=== PATIENT | female | born 1985 | race Caucasian/White ===

== ENCOUNTER 2016-09-30 19:44 | Outpatient (CLI) | payer MEDICAID ==
[~2016-09-30] VITALS: Ht 162.6 cm; Wt 111.8 kg
[~2016-09-30 19:44] MED LIST: PRENATAL PO
[2016-09-30 19:51] VITALS: BP 119/68
[2016-09-30 20:34] LABS: AMNI LOT 554010215
[2016-09-30 20:45] LABS: AMNI OBC PASS; AMNISURE NEGATIVE (NEGATIVE)
== END 2016-09-30 21:05 | disposition home or self-care (01) ==
LOC: LDOP 19:44
PROVIDERS: ATTEND Student in an Organized Health Care Education/Training Program
DX: O26.892 Other specified pregnancy related conditions, second trimester (principal); R10.9 Unspecified abdominal pain; R10.2 Pelvic and perineal pain; O42.912 Preterm premature rupture of membranes, unspecified as to length of time between rupture and onset of labor, second trimester; O99.332 Smoking (tobacco) complicating pregnancy, second trimester; F17.200 Nicotine dependence, unspecified, uncomplicated; Z3A.27 27 weeks gestation of pregnancy
CPT/HCPCS: 59025; 84112; 99211; G0463

== ENCOUNTER 2016-10-15 12:42 | Outpatient (CLI) | payer MEDICAID | END 2016-10-15 15:20 | disposition home or self-care (01) | LOC: LDOP 12:42 | PROVIDERS: ATTEND Student in an Organized Health Care Education/Training Program | DX: O26.893 Other specified pregnancy related conditions, third trimester (principal); O99.333 Smoking (tobacco) complicating pregnancy, third trimester; F17.200 Nicotine dependence, unspecified, uncomplicated; M54.2 Cervicalgia; V43.52XA Car driver injured in collision with other type car in traffic accident, initial encounter; Z3A.29 29 weeks gestation of pregnancy | CPT/HCPCS: 59025; 99211; G0463 ==

== ENCOUNTER 2016-11-21 20:15 | Outpatient (CLI) | payer MEDICAID | END 2016-11-21 21:20 | disposition home or self-care (01) | LOC: LDOP 20:15 | PROVIDERS: ATTEND Student in an Organized Health Care Education/Training Program | DX: O36.8130 Decreased fetal movements, third trimester, not applicable or unspecified (principal); O24.419 Gestational diabetes mellitus in pregnancy, unspecified control; O99.333 Smoking (tobacco) complicating pregnancy, third trimester; F17.200 Nicotine dependence, unspecified, uncomplicated; Z3A.34 34 weeks gestation of pregnancy | CPT/HCPCS: 59025; 99211; G0463 ==

== ENCOUNTER 2016-12-07 18:44 | Outpatient (CLI) | payer MEDICAID ==
[~2016-12-07] VITALS: Ht 167.6 cm; Wt 118.2 kg
[2016-12-07 19:42] VITALS: BP 132/65
[2016-12-07] MEDS ORDERED: PLEASE ENTER HEIGHT AND WEIGHT MC SCH (20:00)
[2016-12-07] MEDS ORDERED: PROMETHAZINE 25 MG/ML, 1ML IM ONE (20:00)
[2016-12-07] MEDS ORDERED: MEPERIDINE/PF 50 MG/ML IM PRN (20:00)
[2016-12-07] MEDS ORDERED: MEPERIDINE/PF 100 MG/ML ONE (20:01)
[2016-12-07] MEDS ORDERED: PROMETHAZINE 25 MG/ML, 1ML ONE (20:01)
[2016-12-07 20:05] LABS: ASPARTATE AMINO TRANSFERASE 19 U/L (15-37); BLOOD UREA NITROGEN 11 mg/dL (7-18)
== END 2016-12-07 22:50 | disposition home or self-care (01) ==
LOC: LDOP 18:44
PROVIDERS: ATTEND Student in an Organized Health Care Education/Training Program
DX: O26.893 Other specified pregnancy related conditions, third trimester (principal); O24.419 Gestational diabetes mellitus in pregnancy, unspecified control; O12.03 Gestational edema, third trimester; R10.9 Unspecified abdominal pain; R51 Headache; Z3A.37 37 weeks gestation of pregnancy
CPT/HCPCS: 36415; 59025; 80053; 81003; 82248; 82570; 84156; 84550; 85025; 99211; J2175; J2550; G0463

== ENCOUNTER 2016-12-09 09:53 | Inpatient (IN) | payer MEDICAID ==
[~2016-12-09] VITALS: Ht 167.6 cm; Wt 119.1 kg
[2016-12-09] MEDS ORDERED: OXYTOCIN 30U/ 0.9% NaCL 500ML 500 ML IV SCH (10:02)
[2016-12-09] MEDS ORDERED: LACTATED RINGERS 1,000 ML IV SCH ×2 (10:02→10:30)
[2016-12-09] MEDS ORDERED: NEWBORN KIT ONE ×2 (10:03→11:44)
[2016-12-09] MEDS ORDERED: SODIUM CITRATE/CITRIC ACID 30 ML UDC PO ONE (10:30)
[2016-12-09] MEDS ORDERED: LACTATED RINGERS 1,000 ML IVBOLUS ONE (10:30)
[2016-12-09] MEDS ORDERED: METOCLOPRAMIDE 5 MG/ML, 2ML IV ONE (10:30)
[2016-12-09 10:41] VITALS: BP 144/79
[2016-12-09] MEDS ORDERED: EPHEDRINE 50 MG/ML, 1ML IVPush PRN (11:00)
[2016-12-09] MEDS ORDERED: ONDANSETRON 2MG/ML, 2ML IVPush PRN (11:00)
[2016-12-09] MEDS ORDERED: hydrALAzine 20 MG/ML, 1ML IV PRN (11:00)
[2016-12-09] MEDS ORDERED: FENTANYL PF 100 MCG/2ML IV PRN (11:00)
[2016-12-09] MEDS ORDERED: OXYcodone 5 MG/5 ML ORAL.SOL UDC PO PRN (11:00)
[2016-12-09] MEDS ORDERED: MEPERIDINE/PF 25MG/0.5ML IVPush PRN (11:00)
[2016-12-09] MEDS ORDERED: ALBUTEROL SULFATE 2.5 MG/3 ML NPPB PRN (11:00)
[2016-12-09] MEDS ORDERED: MIDAZOLAM 1 MG/ML, 2ML IV PRN (11:00)
[2016-12-09] MEDS ORDERED: HYDROcodone/APAP 7.5-325MG/15ML UDC PO PRN (11:00)
[2016-12-09] MEDS ORDERED: LABETALOL 5MG/ML, 20ML IV PRN (11:00)
[2016-12-09] MEDS ORDERED: PROMETHAZINE 25 MG/ML, 1ML IV PRN (11:00)
[2016-12-09 11:06] LABS: ASPARTATE AMINO TRANSFERASE 25 U/L (15-37); BLOOD UREA NITROGEN 9 mg/dL (7-18)
[2016-12-09] MEDS ORDERED: FENTANYL PF 100 MCG/2ML ONE ×2 (11:14→12:07)
[2016-12-09] MEDS ORDERED: OXYTOCIN 30U/ 0.9% NaCL 500ML 500 ML ONE (11:25)
[2016-12-09] MEDS ORDERED: METOCLOPRAMIDE 5 MG/ML, 2ML ONE ×2 (11:25→12:07)
[2016-12-09] MEDS ORDERED: SODIUM CITRATE/CITRIC ACID 30 ML UDC ONE ×2 (11:25→12:07)
[2016-12-09] MEDS ORDERED: OXYTOCIN 10 UNITS/ML, 1ML ONE (12:07)
[2016-12-09] MEDS ORDERED: ONDANSETRON 2MG/ML, 2ML ONE (12:07)
[2016-12-09] MEDS ORDERED: PROPOFOL 10 MG/ML, 20ML ONE (12:07)
[2016-12-09] MEDS ORDERED: DEXAMETHASONE 4 MG/ML, 1ML ONE (12:07)
[2016-12-09] MEDS ORDERED: EPHEDRINE 50 MG/ML, 1ML ONE (12:07)
[2016-12-09] MEDS ORDERED: CEFAZOLIN 1,000 MG ONE (12:07)
[2016-12-09] MEDS ORDERED: PHENYLEPHRINE 10 MG/ML ONE (12:07)
[2016-12-09] MEDS ORDERED: HYDROmorphone 1 MG/ML, 1ML ONE ×2 (14:10→15:51)
[2016-12-09] MEDS: HYDROmorphone 1 MG/ML, 1ML IV PRN ×3 (14:26→15:54)
[2016-12-09] MEDS: LACTATED RINGERS 1,000 ML IV SCH ×2 (17:25)
[2016-12-09] MEDS: OXYTOCIN 30U/ 0.9% NaCL 500ML 500 ML IV SCH (17:25)
[2016-12-09 17:30] VITALS: BP 128/97
[2016-12-09] MEDS ORDERED: ONDANSETRON 2MG/ML, 2ML IV PRN (17:30)
[2016-12-09] MEDS ORDERED: SIMETHICONE 80 MG CHEW TAB PO PRN (17:30)
[2016-12-09] MEDS ORDERED: METOCLOPRAMIDE 5 MG/ML, 2ML IV PRN (17:30)
[2016-12-09] MEDS ORDERED: MISOPROSTOL 200 MCG TABLET PR PRN (17:30)
[2016-12-09] MEDS ORDERED: ACETAMINOPHEN 325 MG TABLET PO PRN (17:30)
[2016-12-09] MEDS: OXYcodone/APAP 5/325MG TABLET PO PRN ×2 (17:58→22:01)
[2016-12-09] MEDS: morphine SULFATE 10 MG/ML, 1ML IVPush PRN ×2 (19:19→22:34)
[2016-12-09 19:40] VITALS: BP 104/64
[2016-12-10 01:20] VITALS: BP 112/55
[2016-12-10] MEDS: LACTATED RINGERS 1,000 ML IV SCH ×4 (01:25→13:25)
[2016-12-10] MEDS: morphine SULFATE 10 MG/ML, 1ML IVPush PRN ×2 (01:42→05:27)
[2016-12-10] MEDS: OXYcodone/APAP 5/325MG TABLET PO PRN ×4 (02:08→19:20)
[2016-12-10] MEDS: OXYTOCIN 30U/ 0.9% NaCL 500ML 500 ML IV SCH ×2 (03:25→13:25)
[2016-12-10 06:15] VITALS: BP 130/75
[2016-12-10] MEDS: DOCUSATE 100 MG CAPSULE PO PRN ×2 (07:55→19:20)
[2016-12-10] MEDS: PRENATAL VIT/IRON/FA 1 EACH TABLET PO SCH (07:55)
[2016-12-10 08:00] VITALS: BP 122/66
[2016-12-10] MEDS ORDERED: IBUPROFEN 200 MG TABLET PO PRN (08:00)
[2016-12-10] MEDS: SERTRALINE 50MG TABLET PO SCH (09:49)
[2016-12-10] MEDS: OXYcodone IR 5MG TABLET PO PRN ×2 (12:09→16:17)
[2016-12-10] MEDS: IBUPROFEN 600 MG TABLET PO PRN ×2 (16:17→23:07)
[2016-12-10 19:00] VITALS: BP 139/77
[2016-12-10] MEDS ORDERED: DIPH,PERTUSS(ACELL),TET VAC/PF NC IM-VACC ONE (21:00)
[2016-12-11 01:00] VITALS: BP 110/59
[2016-12-11] MEDS: OXYcodone IR 5MG TABLET PO PRN ×4 (01:26→14:52)
[2016-12-11 08:30] VITALS: BP 117/77
[2016-12-11] MEDS: SERTRALINE 50MG TABLET PO SCH (08:44)
[2016-12-11] MEDS: PRENATAL VIT/IRON/FA 1 EACH TABLET PO SCH (08:44)
[2016-12-11] MEDS: DOCUSATE 100 MG CAPSULE PO PRN (08:44)
[2016-12-11] MEDS: IBUPROFEN 600 MG TABLET PO PRN ×2 (08:44→14:52)
[2016-12-11] MEDS ORDERED: OXYC5CAP4 PO (11:06)
[2016-12-11] MEDS ORDERED: IBUP-1222 PO (11:06)
[2016-12-11] MEDS ORDERED: DOCU-30 PO (11:07)
== END 2016-12-11 17:34 | disposition home or self-care (01) | DRG 765 ==
LOC: LDIP 09:53 → 2NW 16:28
PROVIDERS: ADMIT Student in an Organized Health Care Education/Training Program; ATTEND Student in an Organized Health Care Education/Training Program
PROC: 10D00Z0 Extraction of Products of Conception, High, Open Approach (ICD-10-PCS; principal; 2016-12-09)
PROC: 0UT70ZZ Resection of Bilateral Fallopian Tubes, Open Approach (ICD-10-PCS; 2016-12-09)
DX: O99.214 Obesity complicating childbirth (principal); Z68.41 Body mass index [BMI] 40.0-44.9, adult; E66.01 Morbid (severe) obesity due to excess calories; O99.284 Endocrine, nutritional and metabolic diseases complicating childbirth; E78.5 Hyperlipidemia, unspecified; O99.52 Diseases of the respiratory system complicating childbirth; J45.909 Unspecified asthma, uncomplicated; O24.424 Gestational diabetes mellitus in childbirth, insulin controlled; O23.43 Unspecified infection of urinary tract in pregnancy, third trimester; O13.4 Gestational [pregnancy-induced] hypertension without significant proteinuria, complicating childbirth; O26.893 Other specified pregnancy related conditions, third trimester; O43.893 Other placental disorders, third trimester; O34.211 Maternal care for low transverse scar from previous cesarean delivery; Z87.59 Personal history of other complications of pregnancy, childbirth and the puerperium; Z3A.37 37 weeks gestation of pregnancy; Z67.41 Type O blood, Rh negative; Z90.89 Acquired absence of other organs; Z37.0 Single live birth; Z88.5 Allergy status to narcotic agent; Z23 Encounter for immunization
CPT/HCPCS: 36415; 80053; 82248; 82803; 82962; 84550; 85025; 86850; 86900; 86923; 88302; 90715; J0690; J1100; J1170; J2405; J2704; J3010; J2270; J2370; J2590; J2765; J7120

== ENCOUNTER 2016-12-16 20:19 | Emergency (ER) | payer MEDICAID ==
[~2016-12-16] VITALS: Ht 167.6 cm; Wt 118.2 kg
[~2016-12-16 20:19] MED LIST changes: +DOCU-30 PO; +IBUP-1222 PO; +OXYC5CAP4 PO
[2016-12-16] MEDS ORDERED: SODIUM CHLORIDE FLUSH 10ML SYR IVF ONE (21:00)
[2016-12-16 21:22] LABS: ASPARTATE AMINO TRANSFERASE 23 U/L (15-37); BLOOD UREA NITROGEN 7 mg/dL (7-18)
[2016-12-16 22:54] VITALS: BP 148/88
== END 2016-12-17 00:02 | disposition home or self-care (01) ==
LOC: ED 23:39
DX: O12.03 Gestational edema, third trimester (principal); O16.3 Unspecified maternal hypertension, third trimester; Z3A.37 37 weeks gestation of pregnancy
CPT/HCPCS: 36415; 80053; 81001; 85025; 93970; 99285

== ENCOUNTER 2017-09-05 14:08 | Inpatient (IN) | payer MEDICAID ==
[~2017-09-05] VITALS: Ht 167.6 cm; Wt 104.1 kg
[~2017-09-05 14:08] MED LIST changes: +DOCU-131 PO; -DOCU-30 PO; +OXYC5CAP2 PO; -OXYC5CAP4 PO
[2017-09-05] MEDS ORDERED: SODIUM CHLORIDE FLUSH 10ML SYR IVF ONE (15:00)
[2017-09-05] MEDS ORDERED: ONDANSETRON ODT 4 MG PO ONE (15:00)
[2017-09-05] MEDS ORDERED: naltrexone PO (15:11)
[2017-09-05 15:35] LABS: MICROSCOPIC NOT IND
[2017-09-05] MEDS ORDERED: ONDANSETRON ODT 4 MG ONE (15:36)
[2017-09-05] MEDS ORDERED: MORPHINE SULFATE 4 MG/ML, 1ML ONE ×2 (15:37→20:22)
[2017-09-05 15:39] LABS: CULTURE INDICATED? NO
[2017-09-05 15:47] LABS: BASOPHILS # (AUTO) 0.05 x10^3/uL (0-0.1); BASOPHILS % (AUTO) 0 % (0-1); EOSINOPHILS # (AUTO) 0.16 x10^3/uL (0-0.4); EOSINOPHILS % (AUTO) 1 % (1-7); LYMPHOCYTES % (AUTO) 17 % (22-44); MD NO; MEAN CORPUSCULAR HEMOGLOBIN 29.6 pg (27.0-34.8); MEAN CORPUSCULAR HGB CONC 33.5 g/dL (32.4-35.8); MEAN CORPUSCULAR VOLUME 88.3 fL (80-100); MEAN PLATELET VOLUME 9.7 fL (7.4-10.4); MONOCYTES # (AUTO) 1.05 x10^3/uL (0.2-0.8); MONOCYTES % (AUTO) 7 % (2-9); NEUTROPHILS # (AUTO) 11.57 x10^3/uL (1.8-6.8); NEUTROPHILS % (AUTO) 75 % (42-75); PLATELET COUNT 265 x10^3/uL (130-400); RED BLOOD COUNT 5.06 x10^6/uL (3.82-5.3); RED CELL DISTRIBUTION WIDTH 13.4 % (9.6-15.2)
[2017-09-05 15:53] LABS: ALANINE AMINOTRANSFERASE 34 U/L (12-78); ALBUMIN 4.1 g/dL (3.4-5.0); ANION GAP 8 mmol/L (5-15); CALCIUM 8.5 mg/dL (8.5-10.1); CHLORIDE 105 mmol/L (98-107)
[2017-09-05 15:58] LABS: ALKALINE PHOSPHATASE 90 U/L (45-117); BILIRUBIN,TOTAL 0.7 mg/dL (0.2-1.0); TOTAL PROTEIN 7.7 g/dL (6.4-8.2)
[2017-09-05] MEDS: MORPHINE SULFATE 4 MG/ML, 1ML IVPush PRN ×2 (16:03→20:23)
[2017-09-05] MEDS ORDERED: POTASSIUM CHLORIDE 20 MEQ in D5%-0.45% NACL 1,000 ML IV ONE (16:40)
[2017-09-05] MEDS ORDERED: CEFOTETAN PMX 1GM/50ML 50 ML ONE ×2 (16:50→16:51)
[2017-09-05] MEDS ORDERED: SODIUM CHLORIDE FLUSH 10ML SYR IVF PRN (17:00)
[2017-09-05] MEDS ORDERED: CEFOTETAN PMX 1GM/50ML 50 ML IV ONE (17:00)
[2017-09-05] MEDS ORDERED: MORPHINE SULFATE 4 MG/ML, 1ML IVPush PRN (17:00)
[2017-09-05] MEDS ORDERED: METOCLOPRAMIDE 5 MG/ML, 2ML IVPush PRN (17:00)
[2017-09-05] MEDS ORDERED: INSULIN PEN (17:36)
[2017-09-05] MEDS ORDERED: HUMULIN R (17:39)
[2017-09-05 18:01] VITALS: BP 118/74
[2017-09-05] MEDS ORDERED: BUPIVACAINE/PF 0.5% ONE (18:12)
[2017-09-05] MEDS ORDERED: EPINEPHRINE 1 MG/ML, 1ML ONE (18:12)
[2017-09-05] MEDS ORDERED: MIDAZOLAM 1 MG/ML, 2ML ONE (18:33)
[2017-09-05] MEDS ORDERED: FENTANYL PF 250 MCG/5ML ONE (18:33)
[2017-09-05] MEDS ORDERED: BUPIVACAINE/PF-EPI 0.5% 1:200K INFIL ONE (19:18)
[2017-09-05] MEDS ORDERED: OXYcodone 5 MG/5 ML ORAL.SOL UDC PO PRN (19:30)
[2017-09-05] MEDS ORDERED: PROMETHAZINE 25 MG/ML, 1ML IV PRN (19:30)
[2017-09-05] MEDS ORDERED: MEPERIDINE/PF 25MG/0.5ML IVPush PRN (19:30)
[2017-09-05] MEDS ORDERED: LABETALOL 5MG/ML, 20ML IV PRN (19:30)
[2017-09-05] MEDS ORDERED: LORazepam 2 MG/ML, 1ML IVPush PRN (19:30)
[2017-09-05] MEDS ORDERED: HYDROmorphone 1 MG/ML, 1ML IV PRN (19:30)
[2017-09-05] MEDS ORDERED: ACETAMINOPHEN 325 MG TABLET PO PRN (19:30)
[2017-09-05] MEDS ORDERED: PROMETHAZINE 12.5 MG SUPP PR PRN (19:30)
[2017-09-05] MEDS ORDERED: ALBUTEROL SULFATE 2.5 MG/3 ML NPPB PRN (19:30)
[2017-09-05] MEDS ORDERED: hydrALAzine 20 MG/ML, 1ML IV PRN (19:30)
[2017-09-05] MEDS ORDERED: MEPERIDINE/PF 25MG/0.5ML ONE (19:56)
[2017-09-05] MEDS ORDERED: OXYcodone 5 MG/5 ML ORAL.SOL UDC ONE (19:56)
[2017-09-05] MEDS: FENTANYL PF 100 MCG/2ML IV PRN ×2 (20:05→20:18)
[2017-09-05] MEDS ORDERED: FENTANYL PF 100 MCG/2ML ONE (20:12)
[2017-09-05 21:10] VITALS: BP 103/56
[2017-09-05] MEDS ORDERED: DIPHENHYDRAMINE 25 MG CAPSULE PO PRN (21:30)
[2017-09-05] MEDS ORDERED: ONDANSETRON 2MG/ML, 2ML IV PRN (21:30)
[2017-09-05] MEDS ORDERED: POTASSIUM CHLORIDE 20 MEQ in D5%-0.45% NACL 1,000 ML IV SCH (21:30)
[2017-09-05] MEDS ORDERED: morphine SULFATE 10 MG/ML, 1ML IV PRN (21:30)
[2017-09-05] MEDS ORDERED: DIPHENHYDRAMINE 50 MG/ML, 1ML IV PRN (21:30)
[2017-09-05] MEDS: HYDROcodone/APAP 5/325 TABLET PO PRN (21:36)
[2017-09-05] MEDS ORDERED: ENOXAPARIN 40 MG/0.4 ML SQ SCH (22:00)
[2017-09-05] MEDS ORDERED: MELATONIN 5 MG TABLET PO SCH (23:00)
[2017-09-05] MEDS ORDERED: KETOROLAC 30 MG/1 ML IV PRN (23:30)
[2017-09-05] MEDS: POTASSIUM CHLORIDE 20 MEQ in D5%-0.45% NACL 1,000 ML IV SCH (23:49)
[2017-09-06 01:54] VITALS: BP 112/67
[2017-09-06 03:33] VITALS: BP 101/56
[2017-09-06 06:43] VITALS: BP 109/71
[2017-09-06] MEDS: HYDROcodone/APAP 5/325 TABLET PO PRN ×2 (08:47→15:13)
[2017-09-06] MEDS ORDERED: SODIUM CHLORIDE FLUSH 10ML SYR IVF SCH (09:00)
[2017-09-06] MEDS: POTASSIUM CHLORIDE 20 MEQ in D5%-0.45% NACL 1,000 ML IV SCH ×2 (09:13→14:47)
[2017-09-06 12:48] VITALS: BP 109/70
== END 2017-09-06 16:23 | disposition home or self-care (01) | DRG 419 ==
LOC: ED 16:48 → 3NE 18:13
PROVIDERS: ADMIT Surgery; ATTEND Surgery
PROC: 0FT44ZZ Resection of Gallbladder, Percutaneous Endoscopic Approach (ICD-10-PCS; principal; 2017-09-05 19:00)
DX: K81.0 Acute cholecystitis (principal); J45.909 Unspecified asthma, uncomplicated; Z88.6 Allergy status to analgesic agent
CPT/HCPCS: 36415; 76700; 80053; 81003; 83690; 84703; 85025; 88304; 99285; J0171; J2175; J2250; J3010; J3480; J3490; Q0162; S0074

== ENCOUNTER 2018-01-12 17:57 | Emergency (ER) | payer MEDICAID ==
[~2018-01-12] VITALS: Ht 167.6 cm; Wt 94.7 kg
[~2018-01-12 17:57] MED LIST changes: +HUMULIN R; +INSULIN PEN; +naltrexone PO
[2018-01-12 18:53] LABS: BASOPHILS # (AUTO) 0.06 x10^3/uL (0-0.1); BASOPHILS % (AUTO) 0 % (0-1); EOSINOPHILS # (AUTO) 0.31 x10^3/uL (0-0.4); EOSINOPHILS % (AUTO) 2 % (1-7); LYMPHOCYTES # (AUTO) 3.11 x10^3/uL (1-3.4); LYMPHOCYTES % (AUTO) 24 % (22-44); MD NO; MEAN CORPUSCULAR HEMOGLOBIN 30.2 pg (27.0-34.8); MEAN CORPUSCULAR HGB CONC 33.9 g/dL (32.4-35.8); MEAN CORPUSCULAR VOLUME 89.2 fL (80-100); MEAN PLATELET VOLUME 10.2 fL (7.4-10.4); MONOCYTES % (AUTO) 7 % (2-9); NEUTROPHILS # (AUTO) 8.77 x10^3/uL (1.8-6.8); NEUTROPHILS % (AUTO) 67 % (42-75); PLATELET COUNT 287 x10^3/uL (130-400); RED BLOOD COUNT 5.24 x10^6/uL (3.82-5.3); RED CELL DISTRIBUTION WIDTH 13.9 % (9.6-15.2)
[2018-01-12 19:01] LABS: ALBUMIN 4.3 g/dL (3.4-5.0); ANION GAP 11 mmol/L (5-15); CALCIUM 8.7 mg/dL (8.5-10.1); CHLORIDE 103 mmol/L (98-107)
[2018-01-12 19:06] LABS: MICROSCOPIC NOT IND
[2018-01-12 19:12] LABS: CULTURE INDICATED? NO
[2018-01-12] MEDS ORDERED: ONDANSETRON ODT 4 MG ONE (19:21)
[2018-01-12] MEDS ORDERED: ONDANSETRON ODT 4 MG PO ONE (19:30)
[2018-01-12 20:04] VITALS: BP 113/55
== END 2018-01-12 20:09 | disposition home or self-care (01) ==
LOC: ED 20:00
DX: R42 Dizziness and giddiness (principal); I10 Essential (primary) hypertension; F31.9 Bipolar disorder, unspecified; J45.909 Unspecified asthma, uncomplicated; R10.9 Unspecified abdominal pain; R11.0 Nausea
CPT/HCPCS: 36415; 71046; 74021; 80048; 81003; 82040; 84703; 85025; 93005; 99285; Q0162

== ENCOUNTER 2018-02-26 13:41 | Emergency (ER) | payer MEDICAID ==
[~2018-02-26] VITALS: Ht 167.6 cm; Wt 80.0 kg
[2018-02-26] MEDS ORDERED: SODIUM CHLORIDE FLUSH 10ML SYR IVF ONE (14:00)
[2018-02-26] MEDS ORDERED: PLEASE ENTER HEIGHT AND WEIGHT MC SCH (14:00)
[2018-02-26] MEDS ORDERED: SODIUM CHLORIDE 0.9% 1,000ML IVBOLUS ONE (14:00)
[2018-02-26 14:16] LABS: CALCIUM 8.4 mg/dL (8.5-10.1); CHLORIDE 108 mmol/L (98-107)
[2018-02-26 14:24] LABS: ALANINE AMINOTRANSFERASE 33 U/L (12-78); ALBUMIN 3.9 g/dL (3.4-5.0); ALKALINE PHOSPHATASE 104 U/L (45-117); ANION GAP 6 mmol/L (5-15); BILIRUBIN,TOTAL 0.5 mg/dL (0.2-1.0); CREATININE 0.68 mg/dL (0.55-1.02); TOTAL PROTEIN 7.5 g/dL (6.4-8.2)
[2018-02-26 14:37] LABS: MICROSCOPIC NOT IND
[2018-02-26 14:38] LABS: HCG UR SG < 1.005 (1.003-1.030)
[2018-02-26 14:40] LABS: CULTURE INDICATED? NO
[2018-02-26 15:20] LABS: BASOPHILS # (AUTO) 0.02 x10^3/uL (0-0.1); BASOPHILS % (AUTO) 0 % (0-1); EOSINOPHILS # (AUTO) 0.25 x10^3/uL (0-0.4); EOSINOPHILS % (AUTO) 3 % (1-7); LYMPHOCYTES # (AUTO) 1.48 x10^3/uL (1-3.4); LYMPHOCYTES % (AUTO) 19 % (22-44); MD NO; MEAN CORPUSCULAR HEMOGLOBIN 30.4 pg (27.0-34.8); MEAN CORPUSCULAR HGB CONC 33.6 g/dL (32.4-35.8); MEAN CORPUSCULAR VOLUME 90.5 fL (80-100); MEAN PLATELET VOLUME 10.3 fL (7.4-10.4); MONOCYTES # (AUTO) 0.69 x10^3/uL (0.2-0.8); MONOCYTES % (AUTO) 9 % (2-9); NEUTROPHILS # (AUTO) 5.54 x10^3/uL (1.8-6.8); NEUTROPHILS % (AUTO) 69 % (42-75); PLATELET COUNT 254 x10^3/uL (130-400); RED BLOOD COUNT 5.03 x10^6/uL (3.82-5.3); RED CELL DISTRIBUTION WIDTH 13.8 % (9.6-15.2)
[2018-02-26 16:57] VITALS: BP 103/44
== END 2018-02-26 16:59 | disposition home or self-care (01) ==
LOC: ED 15:14
DX: R11.2 Nausea with vomiting, unspecified (principal); R19.7 Diarrhea, unspecified; F17.200 Nicotine dependence, unspecified, uncomplicated; J45.909 Unspecified asthma, uncomplicated
CPT/HCPCS: 36415; 74021; 80053; 81003; 81025; 83605; 83690; 85025; 96360; 99285; J7030

== ENCOUNTER 2018-10-29 17:46 | Emergency (ER) | payer MEDICAID ==
[~2018-10-29] VITALS: Ht 162.6 cm; Wt 99.6 kg
--- NOTE | 2018-10-29 18:11 | NUR ---
CALLED PT TO LOBBY IN RESTROOM
[2018-10-29 19:13] LABS: BASOPHILS # (AUTO) 0.04 x10^3/uL (0-0.1); BASOPHILS % (AUTO) 0 % (0-1); EOSINOPHILS # (AUTO) 0.26 x10^3/uL (0-0.4); EOSINOPHILS % (AUTO) 2 % (1-7); LYMPHOCYTES # (AUTO) 2.86 x10^3/uL (1-3.4); LYMPHOCYTES % (AUTO) 19 % (22-44); MD NO; MEAN CORPUSCULAR HEMOGLOBIN 30.1 pg (27.0-34.8); MEAN CORPUSCULAR HGB CONC 32.5 g/dL (32.4-35.8); MEAN CORPUSCULAR VOLUME 92.6 fL (80-100); MEAN PLATELET VOLUME 9.5 fL (7.4-10.4); MONOCYTES # (AUTO) 0.88 x10^3/uL (0.2-0.8); MONOCYTES % (AUTO) 6 % (2-9); NEUTROPHILS # (AUTO) 10.84 x10^3/uL (1.8-6.8); NEUTROPHILS % (AUTO) 73 % (42-75); PLATELET COUNT 299 x10^3/uL (130-400); RED BLOOD COUNT 5.07 x10^6/uL (3.82-5.3); RED CELL DISTRIBUTION WIDTH 13.6 % (9.6-15.2)
[2018-10-29 19:14] LABS: ALBUMIN 4.1 g/dL (3.4-5.0); ANION GAP 6 mmol/L (5-15); CALCIUM 8.7 mg/dL (8.5-10.1); CHLORIDE 107 mmol/L (98-107); CREATININE 0.66 mg/dL (0.55-1.02)
--- NOTE | 2018-10-29 19:55 | NUR ---
PT PRESENTED WITH C/O MIGRAINES, N/V, MUSCLE ACHES, WEAKNESS FOR TWO WEEKS. MONITORS APPLIED, SIDERAILS UP X2, CALL LIGHT WITHIN REACH
--- NOTE | 2018-10-29 20:18 | NUR ---
ERP AT PT'S BEDSIDE FOR RECHECK
--- NOTE | 2018-10-29 21:26 | NUR ---
MATHEW FROM LAB CALLED AND STATED THAT IONIZED CALCIUM IS NOT PROVIDING NUMBERS AND NEEDS TO BE REDRAWN, ERP UPDATED AND ORDER PLACED FOR LAB REDRAW
--- NOTE | 2018-10-29 21:35 | NUR ---
PT RESTING CALMLY C/O BACK, ARMS AND NECK PAIN, REFUSED NEED FOR MEDICATION AT GTHIS TIME, MONITORS IN PLACE, CALL LIGHT WITHIN REACH
[2018-10-29 22:46] VITALS: BP 107/67
--- NOTE | 2018-10-29 22:47 | NUR ---
PT SITTING UP ON GURNEY, FAMILY AT BEDSIDE, CALL LIGHT WITHIN REACH, DENIES NEEDS
== END 2018-10-29 22:57 | disposition home or self-care (01) ==
LOC: ED 22:02
DX: M62.830 Muscle spasm of back (principal); J45.909 Unspecified asthma, uncomplicated; Z87.891 Personal history of nicotine dependence
CPT/HCPCS: 36415; 70450; 80048; 82040; 82330; 82550; 83735; 85025; 99284

== ENCOUNTER 2019-08-02 10:29 | Emergency (ER) | payer MEDICAID ==
[~2019-08-02] VITALS: Ht 167.6 cm; Wt 103.6 kg
--- NOTE | 2019-08-02 11:11 | NUR ---
CRAFT SUPERINTENDENT: PT AMBULATORY TO ROOM FROM RADIOLOGY
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
[2019-08-02] MEDS ORDERED: CEFTRIAXONE PMX 1GM/50ML 50 ML IV ONE (11:30)
[2019-08-02] MEDS ORDERED: SODIUM CHLORIDE 0.9% 1,000ML IVBOLUS ONE (11:30)
--- NOTE | 2019-08-02 11:43 | NUR ---
REPORT TO NERI LEHMAN WHO ASSUMED CARE OF PT.
[2019-08-02] MEDS ORDERED: LISI-167 PO (11:48)
[2019-08-02] MEDS ORDERED: VITAMIN B (11:48)
[2019-08-02] MEDS ORDERED: VITAMIN D3 PO (11:48)
[2019-08-02 11:50] LABS: BASOPHILS # (AUTO) 0.12 x10^3/uL (0-0.1); BASOPHILS % (AUTO) 1 % (0-1); EOSINOPHILS # (AUTO) 0.14 x10^3/uL (0-0.4); EOSINOPHILS % (AUTO) 2 % (1-7); LYMPHOCYTES # (AUTO) 2.32 x10^3/uL (1-3.4); LYMPHOCYTES % (AUTO) 27 % (22-44); MD NO; MEAN CORPUSCULAR HGB CONC 33.4 g/dL (32.4-35.8); MEAN CORPUSCULAR VOLUME 89.9 fL (80-100); MEAN PLATELET VOLUME 9.6 fL (7.4-10.4); MONOCYTES # (AUTO) 0.59 x10^3/uL (0.2-0.8); MONOCYTES % (AUTO) 7 % (2-9); NEUTROPHILS # (AUTO) 5.51 x10^3/uL (1.8-6.8); NEUTROPHILS % (AUTO) 64 % (42-75); PLATELET COUNT 265 x10^3/uL (130-400); RED BLOOD COUNT 5.11 x10^6/uL (3.82-5.3); RED CELL DISTRIBUTION WIDTH 14.5 % (9.6-15.2)
[2019-08-02] MEDS ORDERED: MAGN400T36 PO (11:50)
--- NOTE | 2019-08-02 11:52 | NUR ---
report received from NERI Awad at bedside. pt a&o, resps even and unlabored. nsr on air sampling and monitoring with no ectopy. RN instructed not to administer NS and rocephin previously ordered, as these were ordered in error. Pt has not been given any medications so far this visit.
[2019-08-02 11:55] LABS: ALBUMIN 3.9 g/dL (3.4-5.0); ANION GAP 7 mmol/L (5-15); CHLORIDE 108 mmol/L (98-107)
[2019-08-02 12:02] LABS: CREATININE 0.72 mg/dL (0.55-1.02); TROPONIN I < 0.015 ng/mL (0.000-0.045)
--- NOTE | 2019-08-02 12:13 | NUR ---
EDMD VANBIBBER AT BEDSIDE TO UPDATE PT WITH RESULTS AND POC.
[2019-08-02 12:33] VITALS: BP 135/81
== END 2019-08-02 12:35 | disposition home or self-care (01) ==
LOC: ED 12:20
DX: R07.89 Other chest pain (principal); R19.7 Diarrhea, unspecified; I10 Essential (primary) hypertension; E11.9 Type 2 diabetes mellitus without complications; J45.909 Unspecified asthma, uncomplicated; F17.200 Nicotine dependence, unspecified, uncomplicated
CPT/HCPCS: 36415; 71046; 80048; 82040; 83735; 83880; 84484; 85025; 93005; 99285

== ENCOUNTER 2020-09-18 19:36 | Emergency (ER) | payer MEDICAID ==
[~2020-09-18] VITALS: Ht 165.1 cm; Wt 97.7 kg
[~2020-09-18 19:36] MED LIST changes: +LISI-167 PO; +MAGN400T36 PO; +VITAMIN B; +VITAMIN D3 PO
[2020-09-18] MEDS ORDERED: OXYcodone/APAP 5/325MG TABLET PO ONE (20:30)
[2020-09-18] MEDS ORDERED: OXYcodone/APAP 5/325MG TABLET ONE (20:38)
--- NOTE | 2020-09-18 20:40 | NUR ---
PT BIB SON VIA POV. PER PT GASTRIC SLEEVE ON 12/02/19. PT HAS LEFT UPPER ABD PAIN FOR THE LAST 3 WEEKS, PT STATES PAIN IS MUCH WORSE TODAY. PT HAD ABD ULTRASOUND DONE YESTERDAY. PT RESTING IN GURNEY, MONITORING IN PLACE, NADN AT THIS TIME, SON AT BEDSIDE, PER PT NO NEEDS AT THIS TIME, WCTM.
[2020-09-18] MEDS ORDERED: SODIUM CHLORIDE FLUSH 10ML SYR IVF ONE (21:00)
[2020-09-18 21:20] LABS: BASOPHILS % (AUTO) 1 % (0-1); EOSINOPHILS % (AUTO) 2 % (1-7); LYMPHOCYTES % (AUTO) 31 % (22-44); MEAN CORPUSCULAR HGB CONC 34.4 g/dL (32.4-35.8); MEAN PLATELET VOLUME 9.9 fL (7.4-10.4); MONOCYTES % (AUTO) 8 % (2-9); NEUTROPHILS % (AUTO) 58 % (42-75); PLATELET COUNT 258 x10^3/uL (130-400); RED BLOOD COUNT 4.58 x10^6/uL (3.82-5.3)
[2020-09-18 21:22] LABS: MD NO
[2020-09-18 21:30] VITALS: BP 134/83
[2020-09-18 21:32] LABS: ALANINE AMINOTRANSFERASE 30 U/L (12-78); ALBUMIN 3.6 g/dL (3.4-5.0); ANION GAP 5 mmol/L (5-15); CALCIUM 8.5 mg/dL (8.5-10.1); CHLORIDE 107 mmol/L (98-107); CREATININE 0.66 mg/dL (0.55-1.02)
[2020-09-18 21:37] LABS: ALKALINE PHOSPHATASE 84 U/L (45-117); BILIRUBIN,TOTAL 0.2 mg/dL (0.2-1.0)
--- NOTE | 2020-09-18 21:48 | NUR ---
bedside report from Carmela HE, pt care transferred at this time. pt nad, resting on gurney, appears comfortable, no change in condition at this time. bed in lowest, rails engaged, call light on lap, provided warm blankets for comfort, wctm. waiting for ct.
--- NOTE | 2020-09-18 21:52 | NUR ---
BEDSIDE REPORT GIVEN TO NERI GILMAN.
[2020-09-18] MEDS ORDERED: OMNIPAQUE 350 MG/ML, 100ML BOTTLE ONE (22:32)
[2020-09-18] MEDS ORDERED: PANTOPRAZOLE 40 MG IV ONE (22:49)
--- NOTE | 2020-09-18 23:34 | NUR ---
Patient given discharge instructions and they have confirmed that they understand the instructions. Patient ambulatory with steady gait. NAD, DENIES ADDITIONAL QUESTIONS OR NEEDS, NO PERSONAL BELONGINGS LEFT IN ROOM AFTER DC.
[2020-09-19] MEDS ORDERED: PANTOPRAZOLE 40 MG IV IVPush SCH (09:00)
== END 2020-09-18 23:35 | disposition home or self-care (01) ==
LOC: ED 21:06
DX: K46.9 Unspecified abdominal hernia without obstruction or gangrene (principal); K29.00 Acute gastritis without bleeding; G89.29 Other chronic pain; R10.32 Left lower quadrant pain; I10 Essential (primary) hypertension; E11.9 Type 2 diabetes mellitus without complications; J45.909 Unspecified asthma, uncomplicated; Z90.49 Acquired absence of other specified parts of digestive tract
CPT/HCPCS: 36415; 74177; 80053; 83690; 84703; 85025; 96374; 99285; C9113; Q9967